=== PATIENT | female | born 1970 | race Caucasian/White ===

== ENCOUNTER 2017-10-13 17:18 | Emergency (ER) | payer OTHER ==
[~2017-10-13] VITALS: Ht 167.6 cm; Wt 84.8 kg
[~2017-10-13 17:18] MED LIST: ALPR.5; ALPR1 PO; BENZ1 PO; BUPR150ER PO; BUPR150ERA PO; CLON.5; CLON1; CLON1 PO; DESV50 PO; DOXYLAMINE PO; EFFEXOR; HYDR1TAB94 PO; LORYNA PO; PERP2; PERP2 PO; PROP20 PO; PROP60; QUET100 PO; QUET300 PO; SAPHRIS PO; SERT100 PO; VENL75; VENL75ER; WELLBUTRIN; ZIPR20 PO; [UNRECOGNIZED DRUG - REMARK]
[2017-10-13] MEDS ORDERED: [UNRECOGNIZED DRUG - OTHER] PO (17:41)
== END 2017-10-13 20:05 | disposition home or self-care (01) ==
LOC: ER 17:18
DX: F41.8 Other specified anxiety disorders (principal); Z88.8 Allergy status to other drugs, medicaments and biological substances
CPT/HCPCS: 93005; 93010; 99283-25

== ENCOUNTER → 2018-11-26 | Outpatient (CLI) | payer OTHER ==
[~2018-11-26] MED LIST changes: +[UNRECOGNIZED DRUG - OTHER] PO
[2018-11-26 15:49] LABS: U Amphetamine Screen Not Detected; U Barbituate Screen Not Detected; U Benzodiazapine Screen Not Detected; U Buprenorphine Screen Not Detected; U Cannabinoids Screen Not Detected; U Cocaine Screen Not Detected; U Methadone Screen Not Detected; U Methamphetamine Screen Not Detected; U Opiates Screen Not Detected; U Oxycodone Screen Not Detected; U Phencyclidine Screen Not Detected; U Propoxyphene Screen Not Detected
== END ==
LOC: LAB SHORT 15:22 → LAB 15:22
PROVIDERS: Psychiatry & Neurology Psychiatry
DX: Z51.81 Encounter for therapeutic drug level monitoring (principal); Z79.899 Other long term (current) drug therapy

== ENCOUNTER 2019-03-19 11:28 | Emergency (ER) | payer OTHER ==
[~2019-03-19] VITALS: Ht 167.6 cm; Wt 99.8 kg
[2019-03-19] MEDS ORDERED: Lamictal100 MG PO (11:53)
[2019-03-19] MEDS ORDERED: REXULTI1 MG PO (11:53)
[2019-03-19] MEDS ORDERED: CLON2 PO (11:53)
[2019-03-19 12:13] LABS: BASOPHILS ABSOLUTE AUTO 0.02 K/mm3 (0.00-0.23); BASOPHILS PERCENT AUTO 0 % (0-2); EOSINOPHILS ABSOLUTE AUTO 0.15 K/mm3 (0.00-0.68); EOSINOPHILS PERCENT AUTO 2 % (0-6); Hematocrit 45.7 % (33.0-51.0); IMMATURE GRAN ABSOLUTE AUTO 0.03 K/mm3 (0.00-0.10); IMMATURE GRAN PERCENT AUTO 0 % (0-1); LYMPHOCYTES ABSOLUTE AUTO 2.15 K/mm3 (0.84-5.20); LYMPHOCYTES PERCENT AUTO 24 % (21-46); MONOCYTES ABSOLUTE AUTO 0.53 K/mm3 (0.16-1.47); MONOCYTES PERCENT AUTO 6 % (4-13); Mean Corpuscular HGB 29.8 pg (26.0-34.0); Mean Corpuscular HGB Conc 32.8 g/dL (31.5-36.5); Mean Corpuscular Volume 91 fL (80-100); Mean Platelet Volume 9.3 fL (9.1-12.4); NEUTROPHILS ABSOLUTE AUTO 5.99 K/mm3 (1.96-9.15); NEUTROPHILS PERCENT AUTO 68 % (41-73); Platelet Count 334 K/mm3 (150-400); RDW Coefficient Variation 12.9 % (11.7-14.2); RDW Standard Deviation 42.6 fL (35.1-46.3); Red Blood Cell Count 5.03 M/mm3 (3.80-5.20); White Blood Cell Count 8.87 K/mm3 (4.00-11.30)
[2019-03-19 12:37] LABS: Alanine Aminotransfer (ALT/SGP 30 U/L (12-78); Albumin, Blood 3.6 g/dL (3.4-5.0); Albumin/Globulin Ratio 0.8 (0.8-1.8); Alk Phos 94 U/L (50-136); Anion Gap 9 mmol/L (6-16); Aspartate Aminotrans (AST/SGOT 48 U/L (12-37); Bilirubin, Total 0.5 mg/dL (0.1-1.0); Blood Urea Nitrogen 8 mg/dL (8-24); Bun/Creatinine Ratio 13.4 (12.0-20.0); CO2, Blood 20 mmol/L (21-32); Calcium, Blood 9.1 mg/dL (8.5-10.1); Chloride, Blood 106 mmol/L (98-108); Globulin, Blood 4.5 g/dL (2.2-4.0); Glomerular Filtration Rate >60 (60-); Glucose, Blood 156 mg/dL (70-99); Potassium, Blood 4.1 mmol/L (3.5-5.5); Sodium, Blood 135 mmol/L (136-145); Total Protein, Blood 8.1 g/dL (6.4-8.2); Troponin I <0.015 ng/mL (0.000-0.040)
== END 2019-03-19 14:15 | disposition home or self-care (01) ==
LOC: ER 11:28
PROVIDERS: Physician Assistant
DX: F20.0 Paranoid schizophrenia (principal); F41.9 Anxiety disorder, unspecified; R00.0 Tachycardia, unspecified; N93.9 Abnormal uterine and vaginal bleeding, unspecified; F32.9 Major depressive disorder, single episode, unspecified; Z79.899 Other long term (current) drug therapy; Z88.8 Allergy status to other drugs, medicaments and biological substances
CPT/HCPCS: 36415; 71046; 80053; 84484; 85025; 86850; 86900; 86901; 93005; 93010; 96361; 96374; 99285-25; J1200; J1630; J7030

== ENCOUNTER → 2020-11-03 | Outpatient (CLI) | payer OTHER ==
[~2020-11-03] MED LIST changes: +CLON2 PO; +Lamictal100 MG PO; +REXULTI1 MG PO
[2020-11-04 15:08] LABS: HPV 16 Negative (Negative); HPV 18 Negative (Negative); HPV OTHER HR TYPES Negative (Negative)
== END | disposition home or self-care (01) ==
LOC: LAB 15:28 → LAB SHORT 15:28
PROVIDERS: Obstetrics & Gynecology
DX: Z12.4 Encounter for screening for malignant neoplasm of cervix (principal)
CPT/HCPCS: 87624; G0123

== ENCOUNTER 2021-10-29 14:19 | Emergency (ER) | payer OTHER ==
[~2021-10-29] VITALS: Ht 167.6 cm; Wt 111.1 kg
== END 2021-10-29 15:20 | disposition home or self-care (01) ==
LOC: ER 14:19
DX: T14.8XXA Other injury of unspecified body region, initial encounter (principal); W53.01XA Bitten by mouse, initial encounter; Z79.899 Other long term (current) drug therapy
CPT/HCPCS: 99282

== ENCOUNTER 2021-12-08 10:06 | Emergency (ER) | payer OTHER ==
[~2021-12-08] VITALS: Ht 175.3 cm; Wt 95.2 kg
[2021-12-08] MEDS ORDERED: MODAFINIL200 MG PO (10:32)
[2021-12-08] MEDS ORDERED: [UNRECOGNIZED DRUG - CODE] PO (10:32)
[2021-12-08 11:07] LABS: BASOPHILS ABSOLUTE AUTO 0.02 K/mm3 (0.00-0.23); BASOPHILS PERCENT AUTO 0 % (0-2); EOSINOPHILS ABSOLUTE AUTO 0.29 K/mm3 (0.00-0.68); EOSINOPHILS PERCENT AUTO 4 % (0-6); Hematocrit 39.4 % (33.0-51.0); Hemoglobin 13.5 g/dL (11.5-16.0); IMMATURE GRAN ABSOLUTE AUTO 0.01 K/mm3 (0.00-0.10); IMMATURE GRAN PERCENT AUTO 0 % (0-1); LYMPHOCYTES ABSOLUTE AUTO 2.05 K/mm3 (0.84-5.20); LYMPHOCYTES PERCENT AUTO 31 % (21-46); MONOCYTES ABSOLUTE AUTO 0.63 K/mm3 (0.16-1.47); MONOCYTES PERCENT AUTO 9 % (4-13); Mean Corpuscular HGB 30.1 pg (26.0-34.0); Mean Corpuscular HGB Conc 34.3 g/dL (31.5-36.5); Mean Corpuscular Volume 88 fL (80-100); Mean Platelet Volume 9.2 fL (9.1-12.4); NEUTROPHILS ABSOLUTE AUTO 3.73 K/mm3 (1.96-9.15); NEUTROPHILS PERCENT AUTO 55 % (41-73); Platelet Count 226 K/mm3 (150-400); RDW Coefficient Variation 12.4 % (11.7-14.2); RDW Standard Deviation 39.9 fL (35.1-46.3); Red Blood Cell Count 4.48 M/mm3 (3.80-5.20); White Blood Cell Count 6.73 K/mm3 (4.00-11.30)
[2021-12-08 11:24] LABS: Albumin, Blood 3.5 g/dL (3.4-5.0); Albumin/Globulin Ratio 0.9 (0.8-1.8); Bilirubin, Total 0.2 mg/dL (0.1-1.0); Bun/Creatinine Ratio 13.4 (12.0-20.0); Creatinine, Blood 0.52 mg/dL (0.40-1.00); Globulin, Blood 3.7 g/dL (2.2-4.0); Potassium, Blood 3.9 mmol/L (3.5-5.5); Total Protein, Blood 7.2 g/dL (6.4-8.2)
[2021-12-08 11:42] LABS: Source, Urine Clean Catch
[2021-12-08 12:07] LABS: Appearance, Urine Clear (Clear); Bilirubin, Urine Neg (Neg); Blood, Urine Neg (Neg); Color, Urine Yellow (P-Yellow); Glucose Qualitative, Urine 1+ (Neg); Ketones, Urine Neg (Neg); Leukocyte Esterase, Urine Neg (Neg); Nitrite, Urine Neg (Neg); Protein, Urine Neg (Neg); Urobilinogen, Urine NORM (Normal)
== END 2021-12-08 12:27 | disposition home or self-care (01) ==
LOC: ER 10:06
PROVIDERS: Student in an Organized Health Care Education/Training Program
DX: R41.9 Unspecified symptoms and signs involving cognitive functions and awareness (principal); F20.0 Paranoid schizophrenia; Z79.899 Other long term (current) drug therapy; Z88.8 Allergy status to other drugs, medicaments and biological substances
CPT/HCPCS: 36415; 80053; 81003; 85025

== ENCOUNTER 2022-10-30 09:15 | Emergency (ER) | payer OTHER ==
[~2022-10-30] VITALS: Ht 167.6 cm; Wt 106.1 kg
[~2022-10-30 09:15] MED LIST changes: +MODAFINIL200 MG PO; +[UNRECOGNIZED DRUG - CODE] PO
[2022-10-30 09:27] VITALS: BP 114/99
[2022-10-30] MEDS ORDERED: [UNRECOGNIZED DRUG - OTHER] PO (09:33)
== END 2022-10-30 09:38 | disposition home or self-care (01) ==
LOC: ER 09:15
DX: Z76.0 Encounter for issue of repeat prescription (principal); Z88.8 Allergy status to other drugs, medicaments and biological substances
CPT/HCPCS: 99281

== ENCOUNTER 2023-05-09 15:56 | Emergency (ER) | payer OTHER ==
[~2023-05-09] VITALS: Ht 167.6 cm; Wt 88.5 kg
[2023-05-09 16:03] VITALS: BP 146/107
[2023-05-09 16:33] LABS: BASOPHILS ABSOLUTE AUTO 0.04 K/mm3 (0.00-0.23); BASOPHILS PERCENT AUTO 0 % (0-2); EOSINOPHILS ABSOLUTE AUTO 0.11 K/mm3 (0.00-0.68); EOSINOPHILS PERCENT AUTO 1 % (0-6); Hematocrit 46.3 % (33.0-51.0); Hemoglobin 16.5 g/dL (11.5-16.0); IMMATURE GRAN ABSOLUTE AUTO 0.02 K/mm3 (0.00-0.10); IMMATURE GRAN PERCENT AUTO 0 % (0-1); LYMPHOCYTES ABSOLUTE AUTO 2.37 K/mm3 (0.84-5.20); LYMPHOCYTES PERCENT AUTO 25 % (21-46); MONOCYTES ABSOLUTE AUTO 0.67 K/mm3 (0.16-1.47); MONOCYTES PERCENT AUTO 7 % (4-13); Mean Corpuscular HGB 30.2 pg (26.0-34.0); Mean Corpuscular HGB Conc 35.6 g/dL (31.5-36.5); Mean Corpuscular Volume 85 fL (80-100); Mean Platelet Volume 9.7 fL (9.1-12.4); NEUTROPHILS ABSOLUTE AUTO 6.29 K/mm3 (1.96-9.15); NEUTROPHILS PERCENT AUTO 66 % (41-73); Platelet Count 303 K/mm3 (150-400); RDW Coefficient Variation 12.6 % (11.7-14.2); RDW Standard Deviation 38.4 fL (35.1-46.3); Red Blood Cell Count 5.46 M/mm3 (3.80-5.20)
[2023-05-09 16:36] LABS: Source, Urine Clean Catch
[2023-05-09 16:40] LABS: Ethanol (Alcohol), Blood, Med <3 mg/dL; Salicylate <1.7 mg/dL (2.8-20.0)
[2023-05-09 16:41] LABS: Acetaminophen, Random <2.0 ug/mL (10.0-30.0); Alanine Aminotransfer (ALT/SGP 63 U/L (12-78); Albumin, Blood 4.3 g/dL (3.4-5.0); Albumin/Globulin Ratio 1.1 (0.8-1.8); Alk Phos 93 U/L (50-136); Anion Gap 4 mmol/L (6-16); Aspartate Aminotrans (AST/SGOT 47 U/L (12-37); Bilirubin, Total 0.8 mg/dL (0.1-1.0); Blood Urea Nitrogen 7 mg/dL (8-24); CO2, Blood 23 mmol/L (21-32); Calcium, Blood 9.9 mg/dL (8.5-10.1); Chloride, Blood 109 mmol/L (98-108); Creatinine, Blood 0.54 mg/dL (0.40-1.00); Globulin, Blood 3.8 g/dL (2.2-4.0); Glomerular Filtration Rate 110 (60-); Glucose, Blood 109 mg/dL (70-99); Potassium, Blood 3.7 mmol/L (3.5-5.5); Sodium, Blood 136 mmol/L (136-145); Total Protein, Blood 8.1 g/dL (6.4-8.2)
[2023-05-09 16:41] LABS: Appearance, Urine Clear (Clear); Blood, Urine 4+ (Neg); Color, Urine Yellow (P-Yellow); Glucose Qualitative, Urine Neg (Neg); Ketones, Urine 4+ (Neg); Leukocyte Esterase, Urine 2+ (Neg); Nitrite, Urine Neg (Neg); Protein, Urine 2+ (Neg); Specific Gravity, Urine 1.025 (1.003-1.022); Urobilinogen, Urine 1+ (Normal)
[2023-05-09 16:49] LABS: Bilirubin, Urine 2+ (Neg)
[2023-05-09 16:50] LABS: Bacteria Few /hpf; Mucus Mod (0-Heavy); Squamous Epithelial Cells Mod /hpf (Few)
[2023-05-09] MEDS ORDERED: ZOLOFT50 MG PO (17:00)
[2023-05-09 17:03] LABS: U Amphetamine Screen Not Detected; U Barbituate Screen Not Detected; U Benzodiazapine Screen DETECTED; U Buprenorphine Screen Not Detected; U Cannabinoids Screen Not Detected; U Cocaine Screen Not Detected; U Methadone Screen Not Detected; U Methamphetamine Screen Not Detected; U Opiates Screen Not Detected; U Oxycodone Screen Not Detected; U Phencyclidine Screen Not Detected
[2023-05-09] MEDS ORDERED: LORazepam 1 MG Tab PO ONE (17:05)
== END 2023-05-09 17:49 | disposition home or self-care (01) ==
LOC: ER 15:56
PROVIDERS: Physician Assistant
DX: F32.A Depression, unspecified (principal); F41.9 Anxiety disorder, unspecified; F20.0 Paranoid schizophrenia; Z79.899 Other long term (current) drug therapy; Z88.8 Allergy status to other drugs, medicaments and biological substances
CPT/HCPCS: 80053; 81001; 81025; 85025; 87086; 99283; A9270; G0480

== ENCOUNTER 2023-07-26 01:01 | Emergency (ER) | payer OTHER ==
[~2023-07-26] VITALS: Ht 167.6 cm; Wt 84.8 kg
[~2023-07-26 01:01] MED LIST changes: +ZOLOFT50 MG PO
[2023-07-26 01:45] VITALS: BP 136/97
[2023-07-26] MEDS ORDERED: Ondansetron 4 MG SoluTab SL ONE (01:45)
[2023-07-26] MEDS ORDERED: Magnesium Citrate 300 ML BTL PO ONE (01:45)
== END 2023-07-26 02:05 | disposition home or self-care (01) ==
LOC: ER 01:01
DX: K59.00 Constipation, unspecified (principal); F41.9 Anxiety disorder, unspecified; Z88.8 Allergy status to other drugs, medicaments and biological substances; Z79.899 Other long term (current) drug therapy
CPT/HCPCS: 99283; A9270

== ENCOUNTER 2023-11-22 23:35 | Emergency (ER) | payer OTHER ==
[~2023-11-22] VITALS: Ht 167.6 cm; Wt 74.8 kg
[2023-11-22 23:45] VITALS: BP 143/93
== END 2023-11-23 00:14 | disposition home or self-care (01) ==
LOC: ER 23:35
DX: B34.9 Viral infection, unspecified (principal); Z88.8 Allergy status to other drugs, medicaments and biological substances; Z79.899 Other long term (current) drug therapy
CPT/HCPCS: 99284